=== PATIENT | male | born 1945 | race Caucasian/White ===

== ENCOUNTER 2023-01-01 09:48 | Observation (INO) | payer MEDICARE ==
--- NOTE | 2023-01-01 11:06 | ED ---
Extremity Problem HPI - General Chief complaint: Extremity Problem,Nontraumatic Stated complaint: L leg swelling Time Seen by Provider: 01/01/23 10:05 Source: patient, RN notes reviewed Mode of arrival: ambulatory - History of Present Illness Initial comments: This is a 77-year-old male who presents to the emergency department for left leg pain and swelling. Patient states that he typically has increased swelling in the left lower extremity. However, yesterday he noticed that the swelling was much more prominent than usual. He also has extreme sensitivity to this area. 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 States that this was 4 years ago. He cannot recall if his symptoms feel the same. He is taking Eliquis daily. Denies any chest pain or shortness of breath. Pain is worse with palpation and movement. It is not significant when sitting still. Denies any known injuries. Believes that he is on a water pill. Denies any fevers, chills, sore throat, cough, dyspnea, chest pain, palpitations, abdominal pain, nausea, vomiting, diarrhea, back pain, or headaches. MD Complaint: extremity pain, extremity swelling - Related Data Home Medications Medication Instructions Recorded Confirmed Apixaban [Eliquis] 5 mg PO BID 01/01/23 01/01/23 Aspirin EC [Ecotrin Low Dose] 81 mg PO DAILY 01/01/23 01/01/23 Ferrous Sulfate [Slow Fe] 142 mg PO DAILY 01/01/23 01/01/23 Fluticasone Nasal [place] [Flonase 1 spray EA NOSTRIL DAILY 01/01/23 01/01/23 Nasal [place]] Fluticasone Propion/Salmeterol 1 puff INHALATION RT-BID 01/01/23 01/01/23 [Advair 250-50 Diskus] Ipratropium/Albuter 20-100Mcg 1 puff INHALATION RT-QID 01/01/23 01/01/23 [Combivent Respimat 20-100Mcg Inhaler] Niacin 500 mg PO DAILY 01/01/23 01/01/23 [place]-3 Fatty Acids [[place]-3] 1,000 mg PO DAILY 01/01/23 01/01/23 Pantoprazole [Protonix] 40 mg PO DAILY 01/01/23 01/01/23 Potassium Gluconate 99 mg PO DAILY 01/01/23 01/01/23 Sildenafil Citrate 100 mg PO DAILY PRN 01/01/23 01/01/23 Thyroid,Pork [[place] Thyroid] 120 mg PO DAILY 01/01/23 01/01/23 Triamterene/Hydrochlorothiazid 1 tab PO DAILY 01/01/23 01/01/23 [Triamterene-Hctz 75-50 mg Tab] Zinc Gluconate [Zinc] 50 mg PO DAILY 01/01/23 01/01/23 oxyBUTYnin chloride [oxyBUTYnin 5 mg PO BID 01/01/23 01/01/23 chloride ER] Allergies Allergy/AdvReac Type Severity Reaction Status Date / Time No Known Allergies Allergy Verified 01/01/23 16:05 Review of Systems ROS Statement: Those systems with pertinent positive or pertinent negative responses have been documented in the HPI. ROS Other: All systems not noted in ROS Statement are negative. Past Medical History Past Medical History: Diabetes Mellitus, Hypertension History of Any Multi-Drug Resistant Organisms: None Reported Past Surgical History: Tonsillectomy Past Psychological History: No Psychological Hx Reported Smoking Status: Former smoker Past Alcohol Use History: None Reported Past Drug Use History: None Reported General Exam Limitations: no limitations General appearance: alert, in no apparent distress Head exam: Present: atraumatic, normocephalic, normal inspection Respiratory exam: Present: normal lung sounds bilaterally. Absent: respiratory distress, wheezes, rales, rhonchi, stridor Cardiovascular Exam: Present: regular rate, normal rhythm, normal heart sounds. Absent: systolic murmur, diastolic murmur, rubs, gallop, clicks Extremities exam: Present: other (3+ pitting edema to the left lower extremity. Calf tenderness. Minor erythema. 2+ DP and PT pulses.) Neurological exam: Present: alert, oriented X3, CN II-XII intact Psychiatric exam: Present: normal affect, normal mood Course Vital Signs 01/01/23 01/01/23 01/01/23 09:58 15:04 15:47 Temperature 98.1 F 98.7 F 99.4 F Pulse Rate 65 60 Respiratory 18 18 Rate Blood Pressure 146/68 141/60 O2 Sat by Pulse 98 96 Oximetry Medical Decision Making - Medical Decision Making This is a 77-year-old male who presents to the emergency department for left leg swelling. Was pt. sent in by a medical professional or institution? @ -No Did you speak to anyone other than the patient for history? @ -No Did you review nursing and triage notes? @ -Yes, and I agree, it is accurate with regards to the patient's symptoms. Were old charts reviewed? @ -No Differential Diagnosis? @ -Differential Leg Swelling: Cellullitis, Gout, DVT, PVD, arterial insufficiency, congestive heart failure, compartment syndrome, venous stasis changes, thrombophlebitis, contact dermatitis, necrotizing fasciitis, septic arthritis, this is not meant to be an all-inclusive list. EKG interpreted by me (3pts min.)? @ -EKG interpreted by me demonstrating the following: X-rays interpreted by me (1pt min.)? @ -Not obtained CT interpreted by me (1pt min.)? @ -CT angiogram of the chest obtained. My interpretation identifies distal subsegmental pulmonary emboli. U/S interpreted by me (1pt. min.)? @ -Not interpreted by me. What testing was considered but not performed? (CT, X-rays, U/S, labs)? Why? @ -None What meds were considered but not given? Why? @ -None Did you discuss the management of the patient with other professionals? @ -Yes, Shanon Levi with [facility], who accepts the patient for admission. Did you reconcile home meds? @ -Yes Was smoking cessation discussed for >3mins.? @ -No Was critical care preformed (if so, how long)? @ -No Were there social determinants of health that impacted care today? How? (Homelessness, low income, unemployed, alcoholism, drug addiction, transportation, low edu. Level, literacy, decrease access to med. care, longterm, rehab)? @ -No Was there de-escalation of care discussed even if they declined? (Discuss DNR or withdrawal of care, Hospice)? @ -No What co-morbidities impacted this encounter? (DM, HTN, Smoking, COPD, CAD, Cancer, CVA, Hep., AIDS, mental health diagnosis, sleep apnea, morbid obesity)? @ -DM, HTN Was patient admitted / discharged? @ -Admitted. Duplex ultrasound of the left lower extremity obtained revealing a DVT in the left lower extremity noted in the femoral and popliteal vein. It was suggested that this may be nonocclusive. While the patient does not have any chest pain or shortness of breath, he does have a history of a saddle embolus from a prior DVT. CTA of the chest was subsequently obtained. This identified scattered tiny pulmonary emboli in the distal subsegmental branches. Patient is on Eliquis 5 mg twice daily, which he states that he has been compliant with. Patient is very uncomfortable with regards to the leg pain. Patient admitted to medicine for further management and started on high intensity heparin protocol. Vascular listed as consult. Undiagnosed new problem with uncertain prognosis? @ -None Drug Therapy requiring intensive monitoring for toxicity (Heparin, Nitro, Insulin, Cardizem)? @ -None Were any procedures done? @ -None Diagnosis/symptom? @ -Left LE DVT, PE Acute, or Chronic, or Acute on Chronic? @ -Acute Uncomplicated (without systemic symptoms) or Complicated (systemic symptoms)? @ -Complicated Side effects of treatment? @ -None Exacerbation, Progression, or Severe Exacerbation] @ -Not applicable Poses a threat to life or bodily function? @ -Yes This case was discussed in detail with the attending ED physician, Dr. Asif. Presentation, findings, and treatment plan discussed in detail as well. - Lab Data Result diagrams: 01/01/23 10:44 01/01/23 12:35 Lab Results 01/01/23 01/01/23 01/01/23 Range/Units 10:44 12:35 12:35 WBC 5.6 (3.8-10.6) k/uL RBC 5.33 (4.30-5.90) m/uL Hgb 13.3 (13.0-17.5) gm/dL Hct 43.3 (39.0-53.0) % MCV 81.3 (80.0-100.0) fL MCH 24.9 L (25.0-35.0) pg MCHC 30.6 L (31.0-37.0) g/dL RDW 17.4 H (11.5-15.5) % Plt Count 283 (150-450) k/uL MPV 7.9 Neutrophils % 67 % Lymphocytes % 21 % Monocytes % 6 % Eosinophils % 4 % Basophils % 0 % Neutrophils # 3.8 (1.3-7.7) k/uL Lymphocytes # 1.2 (1.0-4.8) k/uL Monocytes # 0.3 (0-1.0) k/uL Eosinophils # 0.2 (0-0.7) k/uL Basophils # 0.0 (0-0.2) k/uL Hypochromasia Marked Anisocytosis Slight Microcytosis Slight Sodium 139 (137-145) mmol/L Potassium 3.6 (3.5-5.1) mmol/L Chloride 105 (98-107) mmol/L Carbon Dioxide 29 (22-30) mmol/L Anion Gap 5 mmol/L BUN 14 (9-20) mg/dL Creatinine 1.09 (0.66-1.25) mg/dL Est GFR (CKD-EPI)AfAm 76 (>60 ml/min/1.73 sqM) Est GFR (CKD-EPI)NonAf 66 (>60 ml/min/1.73 sqM) Glucose 88 (74-99) mg/dL Plasma Lactic Acid Doni 1.0 (0.7-2.0) mmol/L Calcium 8.4 (8.4-10.2) mg/dL Total Bilirubin 0.7 (0.2-1.3) mg/dL AST 18 (17-59) U/L ALT 13 (4-49) U/L Alkaline Phosphatase 58 (38-126) U/L Total Protein 6.5 (6.3-8.2) g/dL Albumin 3.3 L (3.5-5.0) g/dL - Radiology Data Radiology results: report reviewed, image reviewed Disposition Clinical Impression: Left leg DVT, Pulmonary embolus Disposition: ADMITTED IP TO THIS [facility] Referrals: Nonstaff,Physician [Primary Care Provider] - 1-2 days
[2023-01-01 11:12] LABS: Anisocytosis Slight; Basophils % (A) 0 %; Eosinophils # (A) 0.2 k/uL (0-0.7); Eosinophils % (A) 4 %; HCT 43.3 % (39.0-53.0); HGB 13.3 gm/dL (13.0-17.5); Hypochromasia Marked; Lymphocytes # (A) 1.2 k/uL (1.0-4.8); Lymphocytes % (A) 21 %; MCH 24.9 pg (25.0-35.0); MCHC 30.6 g/dL (31.0-37.0); MCV 81.3 fL (80.0-100.0); Mean Platelet Volume 7.9; Microcytosis Slight; Monocytes # (A) 0.3 k/uL (0-1.0); Monocytes % (A) 6 %; Neutrophils # (A) 3.8 k/uL (1.3-7.7); Neutrophils % (A) 67 %; Platelet Count 283 k/uL (150-450); RBC 5.33 m/uL (4.30-5.90); RDW 17.4 % (11.5-15.5); WBC 5.6 k/uL (3.8-10.6)
--- NOTE | 2023-01-01 12:04 | US ---
EXAMINATION TYPE: US venous doppler duplex LE LT DATE OF EXAM: 01/01/2023 10:26 AM COMPARISON: NONE CLINICAL INDICATION: Male, 77 years old with history of Left leg swelling; SIDE PERFORMED: Left TECHNIQUE: The lower extremity deep venous system is examined utilizing real time linear array sonog kamar with graded compression, doppler sonography and color-flow sonography. VESSELS IMAGED: Common Femoral Vein Deep Femoral Vein Greater Saphenous Vein * Femoral Vein Popliteal Vein Small Saphenous Vein * Proximal Calf Veins (* superficial vessels) Left Leg: Appears positive for DVT, partial flow and compression femoral vein and popliteal vein IMPRESSION: 1. Deep venous thrombosis within the Left lower extremity. This may be nonoccluding
[2023-01-01 12:59] LABS: ALT 13 U/L (4-49); AST 18 U/L (17-59); African American GFR (CKD) 76 (>60 ml/min/1.73 sqM); Albumin 3.3 g/dL (3.5-5.0); Alkaline Phosphatase 58 U/L (38-126); Anion Gap 5 mmol/L; Blood Urea Nitrogen 14 mg/dL (9-20); Calcium 8.4 mg/dL (8.4-10.2); Carbon Dioxide 29 mmol/L (22-30); Chloride 105 mmol/L (98-107); Glucose 88 mg/dL (74-99); Non-African American GFR(CKD) 66 (>60 ml/min/1.73 sqM); Potassium 3.6 mmol/L (3.5-5.1); Sodium 139 mmol/L (137-145); Total Bilirubin 0.7 mg/dL (0.2-1.3); Total Protein 6.5 g/dL (6.3-8.2)
--- NOTE | 2023-01-01 15:12 | CT ---
EXAMINATION TYPE: CT chest angio for PE DATE OF EXAM: 01/01/2023 COMPARISON: None HISTORY: Left leg DVT, history of PE. CT DLP: 653.7 mGycm Automated exposure control for dose reduction was used. CONTRAST: CT Chest for pulmonary embolism performed with with IV Contrast, patient injected with 71ml mL of Iso monica 370. FINDINGS: The lungs are clear of airspace consolidation. The pulmonary vasculature appears mildly prominent is a suggestion of slight groundglass density which could reflect mild pulmonary edema. The heart size i s prominent. The main pulmonary artery and right and left pulmonary arteries are well opacified and there are no f illing defects. Due to motion artifact the subsegmental branches and lower lobes are difficult to ass ess for filling defects but but there is a suggestion of a couple of tiny filling defects which may indicate tiny distal pulmonary emboli.. There is no pleural effusion or pneumothorax. There is no mediastinal, hilar or axillary adenopathy. There are a few sub-6 mm pulmonary nodules but no suspicious lung masses or nodules are seen. The osseous structures are intact. IMPRESSION: 1. Mildly limited study due to artifact. A few scattered tiny pulmonary emboli in distal subsegmental branches are suspected. No large pulmonary emboli within the main pulmonary artery or right and left pulmonary artery or proximal segmental branches. 2. Suggestive of mild CHF and clinical correlation is recommended.
[2023-01-01] MEDS ORDERED: HEPARIN SODIUM 1,000 UN/ML (10ML VL) IV ONE (16:31)
[2023-01-01] MEDS ORDERED: HEPARIN SODIUM 1,000 UN/ML (10ML VL) IV PRN (16:31)
[2023-01-01] MEDS ORDERED: MORPHINE SULFATE 4 MG/ML SYRINGE IV PRN (16:32)
[2023-01-01] MEDS ORDERED: NALOXONE 0.4 MG/ML 1 ML VIAL IV PRN (16:32)
[2023-01-01] MEDS ORDERED: ONDANSETRON 4 MG/2 ML VIAL IVP PRN (16:32)
[2023-01-01] MEDS ORDERED: ACETAMINOPHEN TAB 325 MG TAB PO PRN (16:32)
[2023-01-01] MEDS ORDERED: HYDROcodone/APAP 5-325MG 1 EACH TAB PO PRN (16:32)
[2023-01-01] MEDS: HEPARIN SOD,PORK IN 0.45% NACL 25,000 UNIT in 0.45% NACL 1 250ML.BAG IV SCH (17:03)
[2023-01-01 19:40] LABS: INR 1.2 (<1.2); Prothrombin Time 12.1 sec (9.0-12.0)
[2023-01-01] MEDS: SYMBICORT 80-4.5 MCG INHALER INHALATION SCH (21:08)
[2023-01-01] MEDS: IPRATROPIUM-ALBUTEROL 3 ML NEB INHALATION SCH (21:08)
[2023-01-01] MEDS: OXYBUTYNIN XL 5 MG TAB.ER.24 PO SCH (22:43)
[2023-01-02] MEDS: HEPARIN SOD,PORK IN 0.45% NACL 25,000 UNIT in 0.45% NACL 1 250ML.BAG IV SCH (07:33)
[2023-01-02] MEDS: PANTOPRAZOLE 40 MG TABLET PO SCH (07:36)
[2023-01-02] MEDS: SYMBICORT 80-4.5 MCG INHALER INHALATION SCH ×2 (08:21→20:15)
[2023-01-02] MEDS: IPRATROPIUM-ALBUTEROL 3 ML NEB INHALATION SCH ×5 (08:21→20:15)
[2023-01-02 08:57] LABS: Basophils # (A) 0.04 X 10*3/uL (0.00-0.10); Basophils % (A) 0.7 %; Eosinophils # (A) 0.24 X 10*3/uL (0.04-0.35); Eosinophils % (A) 4.3 %; HGB 11.6 d/dL (12.0-15.0); Lymphocytes # (A) 1.33 X 10*3/uL (0.90-5.00); Lymphocytes % (A) 23.8 %; MCH 23.4 pg (27.0-32.0); MCV 80.6 FL (80.0-97.0); Mean Platelet Volume 10.4 FL (9.5-12.2); Monocytes # (A) 0.35 X 10*3/uL (0.20-1.00); Monocytes % (A) 6.3 %; NRBC Per 100 WBC 0 X 10*3/uL (0.00-0.01); Neutrophils # (A) 3.61 X 10*3/uL (1.80-7.70); Neutrophils % (A) 64.7 %; Platelet Count 270 X 10*3/uL (140-440); RBC 4.96 X 10*6/uL (4.40-5.60); RDW 18.5 % (11.5-14.5); WBC 5.58 X 10*3/uL (4.50-10.00)
[2023-01-02] MEDS ORDERED: NON FORMULARY DRUG (Omega-3 Fatty Acids [Omega-3] 1,000 MG Capsule) PO SCH (09:00)
[2023-01-02] MEDS: POTASSIUM CHLORIDE ER 10 MEQ TAB.ER.PRT PO SCH (09:56)
[2023-01-02] MEDS: TRIAMTERENE-HCTZ 75-50MG 1 EACH TAB PO SCH (09:56)
[2023-01-02] MEDS: ZINC SULFATE 220 MG CAP PO SCH (09:56)
[2023-01-02] MEDS: OXYBUTYNIN XL 5 MG TAB.ER.24 PO SCH ×2 (09:56→21:07)
[2023-01-02] MEDS: FLUTICASONE 50MCG/SPRAY NASAL 16GM EA NOSTRIL SCH (09:56)
[2023-01-02] MEDS: FERROUS SULFATE 325 MG TAB PO SCH (09:56)
[2023-01-02] MEDS: NIACIN TR 500 MG CAPLET PO SCH (09:56)
[2023-01-02] MEDS: THYROID, PORK 30 MG TAB PO SCH (09:56)
--- NOTE | 2023-01-02 10:30 | P.GSCN ---
History of Present Illness Consult date: 01/02/23 Reason for Consult: Pulmonary embolism without heart strain Requesting physician: Davina Cheng History of present illness: This is a pleasant 77-year-old male who presented to the emergency department with concerns for left lower extremity swelling. Patient has a past medical history including left lower extremity DVT and bilateral pulmonary embolism diagnosed several years ago. Patient was currently on Eliquis 5mg BID. He states that he has been taking his medication. Also past medical history including diabetes mellitus and hypertension. He currently denies any significant shortness of breath but states left lower extremity swelling was concerning and he is very sensitive in that area but has been. He was started on heparin drip. Oxygen saturation 94-95%. Review of Systems A 14 point review systems was completed all pertinent positives and negatives as stated in the HPI. Past Medical History Past Medical History: Diabetes Mellitus, Hypertension History of Any Multi-Drug Resistant Organisms: None Reported Past Surgical History: Tonsillectomy Past Psychological History: No Psychological Hx Reported Smoking Status: Former smoker Past Alcohol Use History: None Reported Past Drug Use History: None Reported Medications and Allergies Home Medications Medication Instructions Recorded Confirmed Type Apixaban [Eliquis] 5 mg PO BID 01/01/23 01/01/23 History Aspirin EC [Ecotrin Low Dose] 81 mg PO DAILY 01/01/23 01/01/23 History Ferrous Sulfate [Slow Fe] 142 mg PO DAILY 01/01/23 01/01/23 History Fluticasone Nasal [place] [Flonase 1 spray EA NOSTRIL DAILY 01/01/23 01/01/23 History Nasal [place]] Fluticasone Propion/Salmeterol 1 puff INHALATION RT-BID 01/01/23 01/01/23 History [Advair 250-50 Diskus] Ipratropium/Albuter 20-100Mcg 1 puff INHALATION RT-QID 01/01/23 01/01/23 History [Combivent Respimat 20-100Mcg Inhaler] Niacin 500 mg PO DAILY 01/01/23 01/01/23 History [place]-3 Fatty Acids [[place]-3] 1,000 mg PO DAILY 01/01/23 01/01/23 History Pantoprazole [Protonix] 40 mg PO DAILY 01/01/23 01/01/23 History Potassium Gluconate 99 mg PO DAILY 01/01/23 01/01/23 History Sildenafil Citrate 100 mg PO DAILY PRN 01/01/23 01/01/23 History Thyroid,Pork [[place] Thyroid] 120 mg PO DAILY 01/01/23 01/01/23 History Triamterene/Hydrochlorothiazid 1 tab PO DAILY 01/01/23 01/01/23 History [Triamterene-Hctz 75-50 mg Tab] Zinc Gluconate [Zinc] 50 mg PO DAILY 01/01/23 01/01/23 History oxyBUTYnin chloride [oxyBUTYnin 5 mg PO BID 01/01/23 01/01/23 History chloride ER] Allergies Allergy/AdvReac Type Severity Reaction Status Date / Time No Known Allergies Allergy Verified 01/01/23 16:05 Surgical - Exam Vital Signs Temp Pulse Resp BP Pulse Ox 98.1 F 65 18 146/68 98 01/01/23 09:58 01/01/23 09:58 01/01/23 09:58 01/01/23 09:58 01/01/23 09:58 General appearance: The patient is alert, oriented, appears in no acute distress. HET: Head is normocephalic and atraumatic. Neck: Supple. Heart: Regular. Lungs: Equal expansion, normal respiratory effort. Abdomen: Soft, nontender, nondistended. Extremities: Normal skin color and turgor. Left lower extremity swelling. Neurological: No focal deficits. Results - Labs 01/02/23 04:03 01/01/23 12:35 Abnormal Lab Results - Last 24 Hours (Table) 01/01/23 01/01/23 01/01/23 Range/Units 10:44 12:35 18:47 MCH 24.9 L (25.0-35.0) pg MCHC 30.6 L (31.0-37.0) g/dL RDW 17.4 H (11.5-15.5) % PT 12.1 H (9.0-12.0) sec INR 1.2 H (<1.2) APTT (22.0-30.0) sec Albumin 3.3 L (3.5-5.0) g/dL 01/01/23 01/01/23 01/02/23 Range/Units 20:30 22:20 04:03 MCH (25.0-35.0) pg MCHC (31.0-37.0) g/dL RDW (11.5-15.5) % PT (9.0-12.0) sec INR (<1.2) APTT 156.7 H* 100.9 H* 66.5 H (22.0-30.0) sec Albumin (3.5-5.0) g/dL Diabetes panel 01/01/23 Range/Units 12:35 Sodium 139 (137-145) mmol/L Potassium 3.6 (3.5-5.1) mmol/L Chloride 105 (98-107) mmol/L Carbon Dioxide 29 (22-30) mmol/L BUN 14 (9-20) mg/dL Creatinine 1.09 (0.66-1.25) mg/dL Glucose 88 (74-99) mg/dL Calcium 8.4 (8.4-10.2) mg/dL AST 18 (17-59) U/L ALT 13 (4-49) U/L Alkaline Phosphatase 58 (38-126) U/L Total Protein 6.5 (6.3-8.2) g/dL Albumin 3.3 L (3.5-5.0) g/dL Calcium panel 01/01/23 Range/Units 12:35 Calcium 8.4 (8.4-10.2) mg/dL Albumin 3.3 L (3.5-5.0) g/dL Pituitary panel 01/01/23 Range/Units 12:35 Sodium 139 (137-145) mmol/L Potassium 3.6 (3.5-5.1) mmol/L Chloride 105 (98-107) mmol/L Carbon Dioxide 29 (22-30) mmol/L BUN 14 (9-20) mg/dL Creatinine 1.09 (0.66-1.25) mg/dL Glucose 88 (74-99) mg/dL Calcium 8.4 (8.4-10.2) mg/dL Adrenal panel 01/01/23 Range/Units 12:35 Sodium 139 (137-145) mmol/L Potassium 3.6 (3.5-5.1) mmol/L Chloride 105 (98-107) mmol/L Carbon Dioxide 29 (22-30) mmol/L BUN 14 (9-20) mg/dL Creatinine 1.09 (0.66-1.25) mg/dL Glucose 88 (74-99) mg/dL Calcium 8.4 (8.4-10.2) mg/dL Total Bilirubin 0.7 (0.2-1.3) mg/dL AST 18 (17-59) U/L ALT 13 (4-49) U/L Alkaline Phosphatase 58 (38-126) U/L Total Protein 6.5 (6.3-8.2) g/dL Albumin 3.3 L (3.5-5.0) g/dL - Imaging Comments: Left lower extremity weakness duplex reviewed by Dr. Bhatt. Appears to be chronic. As well as CTA chest reviewed by Dr. Bhatt, likely CHRONIC. Assessment and Plan Assessment: 1. Left lower extremity DVT, chronic 2. Bilateral pulmonary emboli, likely chronic 3. Possible CHF, may account for increased left lower extremity swelling Plan: Left lower extremity venous duplex independently reviewed by Dr. Munoz as well as chest CT angiogram. Likely all CHRONIC. Left lower extremity is increased swelling may be secondary to possible CHF as noted on CT angiogram. Discussed with primary medical team would resume Eliquis as DVT and PEs appear chronic and this is not likely failure of medication however if they feel they want input from hematology we will defer to them for consultation. Thank you for this consultation, there is no indication for any vascular surgical intervention. We will sign off at this time. The impression and plan of care has been dictated as directed. Dr. Bhatt I performed a history and examination of this patient, discussed the same with the dictator. I agree with the dictator's note ,documented as a scribe. Any additional findings or plans will be noted.
--- NOTE | 2023-01-02 14:40 | P.HPIM ---
History of Present Illness H&P Date: 01/02/23 History of present illness; patient is a 77-year-old gentleman with past medical significant for DVT, PE who presented to the ER because of left leg pain and swelling. Patient started noticing increased swelling of left lower extremity, was also associated pain in that area. Patient has previous history of DVT in right lower extremity leading to PE for which he takes Eliquis. Patient denies any orthopnea or PND. There was no complain of any fever or chills. Denies any chest pain or shortness of breath. Because of his left lower extremity swelling, patient came to the ER Initial lab work in the ER showed WBC 5.6, hemoglobin 13.3, platelet count 283, sodium 139, potassium 3.6, BUN 14, creatinine 1.09 Chest CTA done showed few scattered tiny pulmonary emboliin distal subsegmental branches. No large pulmonary emboli suspected Ultrasound of lower extremities showed deep vein thrombosis in the left lower extremity, nonoccluding Patient was admitted to medicine service REVIEW OF SYSTEMS: CONSTITUTIONAL: No fever, no malaise, no fatigue. HEENT: No recent visual problems or hearing problems. Denied any sore throat. CARDIOVASCULAR: No chest pain, orthopnea, PND, no palpitations, no syncope. PULMONARY: No shortness of breath, no cough, no hemoptysis. GASTROINTESTINAL: No diarrhea, no nausea, no vomiting, no abdominal pain. NEUROLOGICAL: No headaches, no weakness, no numbness. HEMATOLOGICAL: Denies any bleeding or petechiae. GENITOURINARY: Denies any burning micturition, frequency, or urgency. MUSCULOSKELETAL/RHEUMATOLOGICAL: Denies any joint pain, swelling, or any muscle pain. ENDOCRINE: Denies any polyuria or polydipsia. The rest of the 14-point review of systems is negative. PHYSICAL EXAMINATION: GENERAL: The patient is alert and oriented x3, not in any acute distress. Well developed, well nourished. HEENT: Pupils are round and equally reacting to light. EOMI. No scleral icterus. No conjunctival pallor. Normocephalic, atraumatic. No pharyngeal erythema. No thyromegaly. CARDIOVASCULAR: S1 and S2 present. No murmurs, rubs, or gallops. PULMONARY: Chest is clear to auscultation, no wheezing or crackles. ABDOMEN: Soft, nontender, nondistended, normoactive bowel sounds. No palpable organomegaly. MUSCULOSKELETAL: No joint swelling or deformity. EXTREMITIES: No cyanosis, clubbing, or pedal edema. NEUROLOGICAL: Gross neurological examination did not reveal any focal deficits. SKIN: No rashes. Assessment and plan Acute PE Acute left lower extremity DVT Acute CHF Hypertension Hypothyroidism Monitor vital signs Monitor CBC Monitor CMP Continue pharmacy dose heparin Consult hematology oncology regarding evaluation for oral anticoagulation since patient already on Eliquis, whether this is Eliquis failure Vascular surgery on board Past Medical History Past Medical History: Diabetes Mellitus, Hypertension History of Any Multi-Drug Resistant Organisms: None Reported Past Surgical History: Tonsillectomy Past Psychological History: No Psychological Hx Reported Smoking Status: Former smoker Past Alcohol Use History: None Reported Past Drug Use History: None Reported Medications and Allergies Home Medications Medication Instructions Recorded Confirmed Type Apixaban [Eliquis] 5 mg PO BID 01/01/23 01/01/23 History Aspirin EC [Ecotrin Low Dose] 81 mg PO DAILY 01/01/23 01/01/23 History Ferrous Sulfate [Slow Fe] 142 mg PO DAILY 01/01/23 01/01/23 History Fluticasone Nasal [place] [Flonase 1 spray EA NOSTRIL DAILY 01/01/23 01/01/23 History Nasal [place]] Fluticasone Propion/Salmeterol 1 puff INHALATION RT-BID 01/01/23 01/01/23 History [Advair 250-50 Diskus] Ipratropium/Albuter 20-100Mcg 1 puff INHALATION RT-QID 01/01/23 01/01/23 History [Combivent Respimat 20-100Mcg Inhaler] Niacin 500 mg PO DAILY 01/01/23 01/01/23 History [place]-3 Fatty Acids [[place]-3] 1,000 mg PO DAILY 01/01/23 01/01/23 History Pantoprazole [Protonix] 40 mg PO DAILY 01/01/23 01/01/23 History Potassium Gluconate 99 mg PO DAILY 01/01/23 01/01/23 History Sildenafil Citrate 100 mg PO DAILY PRN 01/01/23 01/01/23 History Thyroid,Pork [[place] Thyroid] 120 mg PO DAILY 01/01/23 01/01/23 History Triamterene/Hydrochlorothiazid 1 tab PO DAILY 01/01/23 01/01/23 History [Triamterene-Hctz 75-50 mg Tab] Zinc Gluconate [Zinc] 50 mg PO DAILY 01/01/23 01/01/23 History oxyBUTYnin chloride [oxyBUTYnin 5 mg PO BID 01/01/23 01/01/23 History chloride ER] Allergies Allergy/AdvReac Type Severity Reaction Status Date / Time No Known Allergies Allergy Verified 01/01/23 16:05 Physical Exam Vitals: Vital Signs Temp Pulse Pulse Resp BP BP Pulse Ox 01/02/23 08:37 70 01/02/23 08:24 66 01/02/23 07:22 98.4 F 62 18 150/78 95 01/02/23 05:39 01/02/23 01:31 97.8 F 64 19 159/75 94 L 01/02/23 00:27 01/01/23 23:09 01/01/23 22:15 01/01/23 21:17 55 L 01/01/23 21:08 52 L 01/01/23 21:02 98.0 F 54 L 16 168/79 96 01/01/23 20:00 54 L 17 145/68 96 01/01/23 19:00 52 L 15 150/77 96 01/01/23 18:38 98.2 F 50 L 18 150/77 94 L 01/01/23 17:12 98.6 F 54 L 18 143/64 01/01/23 15:47 99.4 F 01/01/23 15:04 98.7 F 60 18 141/60 96 FiO2 01/02/23 08:37 01/02/23 08:24 01/02/23 07:22 01/02/23 05:39 21 01/02/23 01:31 01/02/23 00:27 21 01/01/23 23:09 21 01/01/23 22:15 21 01/01/23 21:17 01/01/23 21:08 01/01/23 21:02 01/01/23 20:00 01/01/23 19:00 01/01/23 18:38 01/01/23 17:12 01/01/23 15:47 01/01/23 15:04 Intake and Output 01/01/23 01/02/23 01/02/23 22:59 06:59 14:59 Intake Total 113.35 136.65 Balance 113.35 136.65 Intake: Intake, IV Titration 113.35 136.65 Amount Heparin Sod,Pork in 0.45% 113.35 136.65 NaCl 25,000 unit In 0.45 % NaCl 1 250ml.bag @ 18 UNITS/KG/HR 20.003 mls/hr IV .[id number] [facility] Rx#: [id number] Other: Voiding Method Toilet # Voids 2 Weight 111.13 kg Results CBC & Chem 7: 01/02/23 04:03 01/01/23 12:35 Labs: Abnormal Lab Results - Last 24 Hours (Table) 01/01/23 01/01/23 01/01/23 Range/Units 10:44 12:35 18:47 Hgb (12.0-15.0) d/dL MCH 24.9 L (25.0-35.0) pg MCHC 30.6 L (31.0-37.0) g/dL RDW 17.4 H (11.5-15.5) % PT 12.1 H (9.0-12.0) sec INR 1.2 H (<1.2) APTT (22.0-30.0) sec Albumin 3.3 L (3.5-5.0) g/dL 01/01/23 01/01/23 01/02/23 Range/Units 20:30 22:20 04:03 Hgb 11.6 L (12.0-15.0) d/dL MCH 23.4 L (25.0-35.0) pg MCHC 29.0 L (31.0-37.0) g/dL RDW 18.5 H (11.5-15.5) % PT (9.0-12.0) sec INR (<1.2) APTT 156.7 H* 100.9 H* (22.0-30.0) sec Albumin (3.5-5.0) g/dL 01/02/23 Range/Units 04:03 Hgb (12.0-15.0) d/dL MCH (25.0-35.0) pg MCHC (31.0-37.0) g/dL RDW (11.5-15.5) % PT (9.0-12.0) sec INR (<1.2) APTT 66.5 H (22.0-30.0) sec Albumin (3.5-5.0) g/dL Thrombosis Risk Factor Assmnt - Choose All That Apply Any of the Below Risk Factors Present?: Yes Each Factor Represents 1 point: Swollen legs (current) Other Risk Factors: Yes Each Risk Factor Represents 3 Points: Age 75 years or older, History of DVT/PE Thrombosis Risk Factor Assessment Total Risk Factor Score: 7 Thrombosis Risk Factor Assessment Level: High Risk
--- NOTE | 2023-01-03 00:29 | P.CONS ---
History of Present Illness - Reason for Consult Consult date: 01/02/23 DVT,PE - History of Present Illness the patient is a 77-year-old white male, with multiple medical problems. The patient came in because of swelling of the left lower extremity, associated with increased sensitivity over the past 2-3 days. He has a history of left lower extremity DVT, and a PE which was a saddle embolus. The patient is quite hard of hearing and most of the history was provided by a female family member who was at the bedside. She states that this event happened about 4-5 years ago, and the patient was seen at the [facility] ER and then transferred to a tertiary center. He has been on anticoagulation with Eliquis since. The patient stated that he has missed some doses intermittently, but has been mostly compliant and has not had any prolonged period of missing medication. He denies any recent hospitalization, surgery or trauma. No history of any hormonal supplementation, or recent inflammation. He did have coronavirus infection, but that was about 8 months ago. They denied any family history is suggestive of hypercoagulable state. He could not recall any provoking factors for his initial thrombus. The patient had Dopplers done, which showed nonoccluding thrombus involving the left femoral vein, with CT angiogram revealing possibly some small peripheral subsegmental thrombi the patient was admitted and started on IV heparin, for concerns regarding possible eliquis failure. He was seen by after surgery, who reviewed his imaging personally and felt that the findings represented chronic thrombosis The patient's previous records were personally reviewed in the [facility] EMR. This was in 06/19. The DVT was involving the common femoral, mid and distal femoral vein and extending into the popliteal vein, and was completely occluding. The PE was a large, saddle embolus with extension into the segmental and subsegmental branches. Repeat Dopplers in 05/23 had shown chronic-appearing clot in the distal femoral/popliteal veins, with trickle flow. Therefore it does appear that, on review of the imaging characteristics previously, and the current findings do represent residual chronic thrombi The patient and his family denied any prior evaluation with hematology Review of Systems Constitutional: Denies chills, Denies fever Eyes: denies blurred vision, denies pain Ears: bilateral: decreased hearing, deny: ear discharge, earache, tinnitus Ears, nose, mouth and throat: Denies headache, Denies sore throat Cardiovascular: Reports decreased exercise tolerance Respiratory: Denies cough Gastrointestinal: Denies abdominal pain, Denies diarrhea, Denies nausea, Denies vomiting Genitourinary: Reports as per HPI Musculoskeletal: Reports as per HPI Integumentary: Denies pruritus, Denies rash Neurological: Denies numbness, Denies weakness Psychiatric: Denies anxiety, Denies depression Endocrine: Reports high blood sugars Hematologic/Lymphatic: Reports as per HPI, Reports thrombophilia Past Medical History Past Medical History: Diabetes Mellitus, Hypertension History of Any Multi-Drug Resistant Organisms: None Reported Past Surgical History: Tonsillectomy Past Psychological History: No Psychological Hx Reported Smoking Status: Former smoker Past Alcohol Use History: None Reported Past Drug Use History: None Reported Medications and Allergies Home Medications Medication Instructions Recorded Confirmed Type Apixaban [Eliquis] 5 mg PO BID 01/01/23 01/01/23 History Aspirin EC [Ecotrin Low Dose] 81 mg PO DAILY 01/01/23 01/01/23 History Ferrous Sulfate [Slow Fe] 142 mg PO DAILY 01/01/23 01/01/23 History Fluticasone Nasal [place] [Flonase 1 spray EA NOSTRIL DAILY 01/01/23 01/01/23 History Nasal [place]] Fluticasone Propion/Salmeterol 1 puff INHALATION RT-BID 01/01/23 01/01/23 History [Advair 250-50 Diskus] Ipratropium/Albuter 20-100Mcg 1 puff INHALATION RT-QID 01/01/23 01/01/23 History [Combivent Respimat 20-100Mcg Inhaler] Niacin 500 mg PO DAILY 01/01/23 01/01/23 History [place]-3 Fatty Acids [[place]-3] 1,000 mg PO DAILY 01/01/23 01/01/23 History Pantoprazole [Protonix] 40 mg PO DAILY 01/01/23 01/01/23 History Potassium Gluconate 99 mg PO DAILY 01/01/23 01/01/23 History Sildenafil Citrate 100 mg PO DAILY PRN 01/01/23 01/01/23 History Thyroid,Pork [[place] Thyroid] 120 mg PO DAILY 01/01/23 01/01/23 History Triamterene/Hydrochlorothiazid 1 tab PO DAILY 01/01/23 01/01/23 History [Triamterene-Hctz 75-50 mg Tab] Zinc Gluconate [Zinc] 50 mg PO DAILY 01/01/23 01/01/23 History oxyBUTYnin chloride [oxyBUTYnin 5 mg PO BID 01/01/23 01/01/23 History chloride ER] Allergies Allergy/AdvReac Type Severity Reaction Status Date / Time No Known Allergies Allergy Verified 01/01/23 16:05 Physical Exam Vitals: Vital Signs Temp Pulse Pulse Resp BP BP Pulse Ox 01/02/23 13:56 98.0 F 69 20 148/63 91 L 01/02/23 12:00 72 01/02/23 11:49 68 01/02/23 08:37 70 01/02/23 08:24 66 01/02/23 07:22 98.4 F 62 18 150/78 95 01/02/23 05:39 01/02/23 01:31 97.8 F 64 19 159/75 94 L 01/02/23 00:27 01/01/23 23:09 01/01/23 22:15 01/01/23 21:17 55 L 01/01/23 21:08 52 L 01/01/23 21:02 98.0 F 54 L 16 168/79 96 01/01/23 20:00 54 L 17 145/68 96 01/01/23 19:00 52 L 15 150/77 96 01/01/23 18:38 98.2 F 50 L 18 150/77 94 L 01/01/23 17:12 98.6 F 54 L 18 143/64 01/01/23 15:47 99.4 F 01/01/23 15:04 98.7 F 60 18 141/60 96 FiO2 01/02/23 13:56 01/02/23 12:00 01/02/23 11:49 01/02/23 08:37 01/02/23 08:24 01/02/23 07:22 01/02/23 05:39 21 01/02/23 01:31 01/02/23 00:27 21 01/01/23 23:09 21 01/01/23 22:15 21 01/01/23 21:17 01/01/23 21:08 01/01/23 21:02 01/01/23 20:00 01/01/23 19:00 01/01/23 18:38 01/01/23 17:12 01/01/23 15:47 01/01/23 15:04 Intake and Output 01/01/23 01/02/23 01/02/23 22:59 06:59 14:59 Intake Total 113.35 136.65 Balance 113.35 136.65 Intake: Intake, IV Titration 113.35 136.65 Amount Heparin Sod,Pork in 0.45% 113.35 136.65 NaCl 25,000 unit In 0.45 % NaCl 1 250ml.bag @ 18 UNITS/KG/HR 20.003 mls/hr IV .[id number] [facility] Rx#: [id number] Other: Voiding Method Toilet # Voids 2 Weight 111.13 kg - Constitutional General appearance: no acute distress - EENT Eyes: EOMI, PERRLA ENT: hearing grossly normal, normal oropharynx - Neck Neck: no lymphadenopathy Thyroid: bilateral: normal size - Respiratory Respiratory: bilateral: CTA - Cardiovascular Rhythm: regular Heart sounds: normal: S1, S2 - Gastrointestinal General gastrointestinal: normal bowel sounds, soft - Integumentary Integumentary: normal - Neurologic Neurologic: CNII-XII intact, focal deficits (hard of hearing) - Musculoskeletal b/l LE edema , L sig > R Musculoskeletal: generalized weakness, strength equal bilaterally - Psychiatric Psychiatric: A&O x's 3, appropriate affect Results CBC & Chem 7: 01/02/23 04:03 01/01/23 12:35 Labs: Abnormal Lab Results - Last 24 Hours (Table) 01/01/23 01/01/23 01/01/23 Range/Units 18:47 20:30 22:20 Hgb (12.0-15.0) d/dL MCH (27.0-32.0) pg MCHC (32.0-37.0) d/dL RDW (11.5-14.5) % PT 12.1 H (9.0-12.0) sec INR 1.2 H (<1.2) APTT 156.7 H* 100.9 H* (22.0-30.0) sec 01/02/23 01/02/23 Range/Units 04:03 04:03 Hgb 11.6 L (12.0-15.0) d/dL MCH 23.4 L (27.0-32.0) pg MCHC 29.0 L (32.0-37.0) d/dL RDW 18.5 H (11.5-14.5) % PT (9.0-12.0) sec INR (<1.2) APTT 66.5 H (22.0-30.0) sec CT scan - chest: report reviewed Venous US: report reviewed Assessment and Plan (1) Left leg DVT Narrative/Plan: there was concern for recurrence, because of symptoms as described in the HPI. Recurrent acute DVT would mean failure of treatment. However, as noted in the HPI, the current findings when compared to prior imaging done at [facility] appeared to be compatible with residual chronic thrombosis. The same opinion was given by vascular surgery on their review of the clinical data including the imaging - The above was discussed in detail with internal medicine. From our standpoint the patient can therefore be switched back to Eliquis. There does not appear to be any failure of anticoagulation. - Given prior history of apparently an unprovoked event including major PE, lifelong anticoagulation is reasonable as long as there are no tolerance issues Current Visit: Yes Status: Acute Code(s): I82.402 - ACUTE EMBOLISM AND THOMBOS UNSP DEEP VEINS OF L LOW EXTREM SNOMED Code(s): 272582736 (2) Pulmonary embolus Narrative/Plan: again, review of prior imaging indicates that the current findings either reflect some small residual chronic thrombosis, versus artifact as the dye injection was potentially suboptimal. Plan as noted above Current Visit: Yes Status: Acute Code(s): I26.99 - OTHER PULMONARY EMBOLISM WITHOUT ACUTE COR PULMONALE SNOMED Code(s): 90491215
[2023-01-03] MEDS: HEPARIN SOD,PORK IN 0.45% NACL 25,000 UNIT in 0.45% NACL 1 250ML.BAG IV SCH ×2 (00:42→06:02)
[2023-01-03] MEDS: PANTOPRAZOLE 40 MG TABLET PO SCH (06:36)
[2023-01-03] MEDS: SYMBICORT 80-4.5 MCG INHALER INHALATION SCH (09:24)
[2023-01-03] MEDS: IPRATROPIUM-ALBUTEROL 3 ML NEB INHALATION SCH ×3 (09:24→16:17)
[2023-01-03] MEDS: OXYBUTYNIN XL 5 MG TAB.ER.24 PO SCH (09:41)
[2023-01-03] MEDS: FLUTICASONE 50MCG/SPRAY NASAL 16GM EA NOSTRIL SCH (09:41)
[2023-01-03] MEDS: POTASSIUM CHLORIDE ER 10 MEQ TAB.ER.PRT PO SCH (09:41)
[2023-01-03] MEDS: FERROUS SULFATE 325 MG TAB PO SCH (09:41)
[2023-01-03] MEDS: ZINC SULFATE 220 MG CAP PO SCH (09:41)
[2023-01-03] MEDS: TRIAMTERENE-HCTZ 75-50MG 1 EACH TAB PO SCH (09:42)
[2023-01-03] MEDS: THYROID, PORK 30 MG TAB PO SCH (09:42)
[2023-01-03] MEDS: NIACIN TR 500 MG CAPLET PO SCH (09:42)
--- NOTE | 2023-01-03 10:03 | P.CRDCN ---
History of Present Illness History of present illness: HISTORY OF PRESENT ILLNESS: This is a 77-year-old male with a past medical history significant for Hypertension, DVT and PE, on anticoagulation at home with Eliquis. Patient does not follow with a enterprise resource planning consultant. We have been asked to see the patient in consultation for CHF. Patient examined at the bedside. Patient presented to the hospital for chief complaint of left leg pain and swelling. Vascular surgery was consulted and evaluated the patient who feels that the patient's DVT and PE are both chronic. His Eliquis was placed on hold and he was started on IV h eparin. The patient denies chest pain or pressure. Denies SOB. Vital signs are stable. * EKG reveals sinus bradycardia with right bundle branch block. * Chest CT: Mildly limited study due to artifact. If he scattered tiny pulmonary emboli and distal subsegmental branches are suspected. No large pul monary embolism within the main pulmonary artery or right and left pulmonary artery or proximal segmental branches. Suggestive of mild CHF. * Venous Doppler: DVT of left lower extremity * Laboratory data: WBC 5.58. Hemoglobin 11.6. Platelet count 270. Sodium 139. Potassium 3.6. BUN 14. Creatinine 1.09. * Current home cardiac medications include aspirin 81 mg daily, Triamterene/hydrochlorothiazide 75-50mg daily, and Eliquis 5mg BID REVIEW OF SYSTEMS: At the time of my exam: CONSTITUTIONAL: Denies fever or chills. HEENT: Denies blurred vision, vision changes, or eye pain. Denies hemoptysis CARDIOVASCULAR: Denies chest pain. Denies orthopnea. Denies PND. Denies palpitations RESPIRATORY: Denies shortness of breath. GASTROINTESTINAL: Denies abdominal pain. Denies nausea or vomiting. HEMATOLOGIC: Denies bleeding disorders. GENITOURINARY: Denies any blood in urine. SKIN: Denies pruitis. Denies rash. PHYSICAL EXAM: VITAL SIGNS: Reviewed. GENERAL: Well-developed in no acute distress. HEENT: Head is normocephalic. Pupils are equal, round. Sclerae anicteric. Mucous membranes of the mouth are moist. Neck supple. No JVD or thyromegaly LUNGS: Respirations even and unlabored. Lungs essentially clear to auscultation bilaterally. HEART: Regular rate and rhythm. S1 and S2 heard. ABDOMEN: Soft. Nondistended. Nontender. EXTREMITIES: Normal range of motion. No clubbing or cyanosis. Peripheral pulses intact. Left lower extremity edema. NEUROLOGIC: Awake and alert. Oriented x 3. ASSESSMENT: Left leg swelling, no evidence of CHF, BNP 359 Chronic PE/DVT, on Eliquis Hypertension PLAN: Obtain 2D echo to assess cardiac structure and function Recommend transitioning back to Eliquis Stable from a cardiac standpoint Further recommendations pending patient course Nurse practitioner note has been reviewed by physician. Signing provider agrees with the documented findings, assessment, and plan of care. Past Medical History Past Medical History: Diabetes Mellitus, Hypertension History of Any Multi-Drug Resistant Organisms: None Reported Past Surgical History: Tonsillectomy Past Psychological History: No Psychological Hx Reported Smoking Status: Former smoker Past Alcohol Use History: None Reported Past Drug Use History: None Reported Medications and Allergies Home Medications Medication Instructions Recorded Confirmed Type Apixaban [Eliquis] 5 mg PO BID 01/01/23 01/01/23 History Aspirin EC [Ecotrin Low Dose] 81 mg PO DAILY 01/01/23 01/01/23 History Ferrous Sulfate [Slow Fe] 142 mg PO DAILY 01/01/23 01/01/23 History Fluticasone Nasal [place] [Flonase 1 spray EA NOSTRIL DAILY 01/01/23 01/01/23 History Nasal [place]] Fluticasone Propion/Salmeterol 1 puff INHALATION RT-BID 01/01/23 01/01/23 Histo ry [Advair 250-50 Diskus] Ipratropium/Albuter 20-100Mcg 1 puff INHALATION RT-QID 01/01/23 01/01/23 History [Combivent Respimat 20-100Mcg Inhaler] Niacin 500 mg PO DAILY 01/01/23 01/01/23 History [place]-3 Fatty Acids [[place]-3] 1,000 mg PO DAILY 01/01/23 01/01/23 History Pantoprazole [Protonix] 40 mg PO DAILY 01/01/23 01/01/23 History Potassium Gluconate 99 mg PO DAILY 01/01/23 01/01/23 History Sildenafil Citrate 100 mg PO DAILY PRN 01/01/23 01/01/23 History Thyroid,Pork [[place] Thyroid] 120 mg PO DAILY 01/01/23 01/01/23 History Triamterene/Hydrochlorothiazid 1 tab PO DAILY 01/01/23 01/01/23 History [Triamterene-Hctz 75-50 mg Tab] Zinc Gluconate [Zinc] 50 mg PO DAILY 01/01/23 01/01/23 History oxyBUTYnin chloride [oxyBUTYnin 5 mg PO BID 01/01/23 01/01/23 History chloride ER] Allergies Allergy/AdvReac Type Severity Reaction Status Date / Time No Known Allergies Allergy Verified 01/01/23 16:05 Physical Exam Vitals: Vital Signs Temp Pulse Pulse Resp BP BP Pulse Ox 01/02/23 08:37 70 01/02/23 08:24 66 01/02/23 07:22 98.4 F 62 18 150/78 95 01/02/23 05:39 01/02/23 01:31 97.8 F 64 19 159/75 94 L 01/02/23 00:27 01/01/23 23:09 01/01/23 22:15 01/01/23 21:17 55 L 01/01/23 21:08 52 L 01/01/23 21:02 98.0 F 54 L 16 168/79 96 01/01/23 20:00 54 L 17 145/68 96 01/01/23 19:00 52 L 15 150/77 96 01/01/23 18:38 98.2 F 50 L 18 150/77 94 L 01/01/23 17:12 98.6 F 54 L 18 143/64 01/01/23 15:47 99.4 F 01/01/23 15:04 98.7 F 60 18 141/60 96 FiO2 01/02/23 08:37 01/02/23 08:24 01/02/23 07:22 01/02/23 05:39 21 01/02/23 01:31 01/02/23 00:27 21 01/01/23 23:09 21 01/01/23 22:15 21 01/01/23 21:17 01/01/23 21:08 01/01/23 21:02 01/01/23 20:00 01/01/23 19:00 01/01/23 18:38 01/01/23 17:12 01/01/23 15:47 01/01/23 15:04 Intake and Output 01/01/23 01/02/23 01/02/23 22:59 06:59 14:59 Intake Total 113.35 136.65 Balance 113.35 136.65 Intake: Intake, IV Titration 113.35 136.65 Amount Heparin Sod,Pork in 0.45% 113.35 136.65 NaCl 25,000 unit In 0.45 % NaCl 1 250ml.bag @ 18 UNITS/KG/HR 20.003 mls/hr IV .[id number] [facility] Rx#: [id number] Other: Voiding Method Toilet # Voids 2 Weight 111.13 kg Results 01/02/23 04:03 01/01/23 12:35 Cardiac Enzymes 01/01/23 Range/Units 12:35 AST 18 (17-59) U/L Coagulation 01/01/23 01/01/23 01/01/23 Range/Units 18:47 20:30 22:20 PT 12.1 H (9.0-12.0) sec APTT 156.7 H* 100.9 H* (22.0-30.0) sec 01/02/23 Range/Units 04:03 PT (9.0-12.0) sec APTT 66.5 H (22.0-30.0) sec CBC 01/02/23 Range/Units 04:03 WBC 5.58 (4.50-10.00) X 10*3/uL RBC 4.96 (4.40-5.60) X 10*6/uL Hgb 11.6 L (12.0-15.0) d/dL Hct 40.0 (39.6-50.0) % Plt Count 270 (140-440) X 10*3/uL Comprehensive Metabolic Panel 01/01/23 Range/Units 12:35 Sodium 139 (137-145) mmol/L Potassium 3.6 (3.5-5.1) mmol/L Chloride 105 (98-107) mmol/L Carbon Dioxide 29 (22-30) mmol/L BUN 14 (9-20) mg/dL Creatinine 1.09 (0.66-1.25) mg/dL Glucose 88 (74-99) mg/dL Calcium 8.4 (8.4-10.2) mg/dL AST 18 (17-59) U/L ALT 13 (4-49) U/L Alkaline Phosphatase 58 (38-126) U/L Total Protein 6.5 (6.3-8.2) g/dL Albumin 3.3 L (3.5-5.0) g/dL Current Medications Generic Name Dose Route Start Last Admin Trade Name Freq PRN Reason Stop Dose Admin Acetaminophen 650 mg 01/01/23 16:32 Acetaminophen Tab 325 Mg Tab PO Q6HR PRN Mild Pain or Fever > 100.5 Hydrocodone Bitart/Acetaminophen 1 each 01/01/23 16:32 Hydrocodone/Apap 5-325mg 1 Each Tab PO Q4HR PRN Moderate Pain (Scale 4 to 6) Albuterol/Ipratropium 3 ml 01/01/23 20:00 01/02/23 08:21 Ipratropium-Albuterol 3 Ml Neb INHALATION 3 ml RT-QID JOSE Administration Budesonide/Formoterol Fumarate 2 puff 01/01/23 20:00 01/02/23 08:21 Symbicort 80-4.5 Mcg Inhaler INHALATION 2 puff RT-BID JOSE Administration Ferrous Sulfate 325 mg 01/02/23 09:00 01/02/23 09:56 Ferrous Sulfate 325 Mg Tab PO 325 mg DAILY JOSE Administration Fluticasone Propionate 1 spray 01/02/23 09:00 01/02/23 09:56 Fluticasone 50mcg/[place] Nasal 16gm EA NOSTRIL 1 spray DAILY JOSE Administration Heparin Sodium (Porcine) 0 unit 01/01/23 16:31 Heparin Sodium 1,000 Un/Ml (10ml Vl) IV PER PROTOCOL PRN Low PTT Protocol Heparin Sodium/Sodium Chloride 250 mls @ 20.003 mls/hr 01/01/23 16:45 01/02/23 07:33 25,000 unit/ Sodium Chloride IV 15 units/kg/hr .[id number] JOSE 16.67 mls/hr Administration Protocol 18 UNITS/KG/HR Morphine Sulfate 4 mg 01/01/23 16:32 Morphine Sulfate 4 Mg/Ml Syringe IV Q4HR PRN Severe Pain (Scale 7 to 10) Naloxone HCl 0.2 mg 01/01/23 16:32 Naloxone 0.4 Mg/Ml 1 Ml Vial IV Q2M PRN Opioid Reversal Niacin 500 mg 01/02/23 09:00 01/02/23 09:56 Niacin Tr 500 Mg Caplet PO 500 mg DAILY JOSE Administration Ondansetron HCl 4 mg 01/01/23 16:32 Ondansetron 4 Mg/2 Ml Vial IVP Q8HR PRN Nausea And Vomiting Oxybutynin Chloride 5 mg 01/01/23 21:00 01/02/23 09:56 Oxybutynin Xl 5 Mg Tab.Er.24 PO 5 mg BID JOSE Administration Pantoprazole Sodium 40 mg 01/02/23 07:30 01/02/23 07:36 Pantoprazole 40 Mg Tablet PO 40 mg AC-BRKFST JOSE Administration Potassium Chloride 10 meq 01/02/23 09:00 01/02/23 09:56 Potassium Chloride Er 10 Meq Tab.Er.Prt PO 10 meq DAILY JOSE Administration Thyroid 120 mg 01/02/23 09:00 01/02/23 09:56 Thyroid, Pork 30 Mg Tab PO 120 mg DAILY JOSE Administration Triamterene/Hydrochlorothiazide 1 each 01/02/23 09:00 01/02/23 09:56 Triamterene-Hctz 75-50mg 1 Each Tab PO 1 each DAILY JOSE Administration Zinc Sulfate 220 mg 01/02/23 09:00 01/02/23 09:56 Zinc Sulfate 220 Mg Cap PO 220 mg DAILY JOSE Administration Intake and Output 01/01/23 01/02/23 01/02/23 22:59 06:59 14:59 Intake Total 113.35 136.65 Balance 113.35 136.65 Intake: Intake, IV Titration 113.35 136.65 Amount Heparin Sod,Pork in 0.45% 113.35 136.65 NaCl 25,000 unit In 0.45 % NaCl 1 250ml.bag @ 18 UNITS/KG/HR 20.003 mls/hr IV .[id number] [facility] Rx#: [id number] Other: Voiding Method Toilet # Voids 2 Weight 111.13 kg 01/02/23 04:03 01/01/23 12:35
[2023-01-03] MEDS ORDERED: APIXABAN 5 MG TAB PO SCH (10:45)
--- NOTE | 2023-01-03 11:39 | P.DS ---
Providers Date of admission: 01/01/23 17:36 Expected date of discharge: 01/03/23 Attending physician: Audi Mulligan Consults: 01/02/23 09:15 Consult Physician Urgent Consulting Provider: Sukhi Fay Consult Reason/Comments: chf, volume overload, leg swelling Do you want consulting provider notified?: Yes 01/02/23 10:19 Consult Physician Urgent Consulting Provider: Romeo Abel Consult Reason/Comments: PE, left lower extremity DVT, currently on Eliquis Do you want consulting provider notified?: Yes Primary care physician: Physician Nonstaff Hospital Course: Discharge diagnoses; chronic left lower extremity DVT Chronic PE Acute CHF ruled out Hypertension Hypothyroidism Hospital course; patient is a 77-year-old gentleman with past medical significant for DVT, PE who presented to the ER because of left leg pain and swelling. Patient started noticing increased swelling of left lower extremity, was also associated pain in that area. Patient has previous history of DVT in right lower extremity leading to PE for which he takes Eliquis. Patient denies any orthopnea or PND. There was no complain of any fever or chills. Denies any chest pain or shortness of breath. Because of his left lower extremity swelling, patient came to the ER Initial lab work in the ER showed WBC 5.6, hemoglobin 13.3, platelet count 283, sodium 139, potassium 3.6, BUN 14, creatinine 1.09 Chest CTA done showed few scattered tiny pulmonary emboliin distal subsegmental branches. No large pulmonary emboli suspected Ultrasound of lower extremities showed deep vein thrombosis in the left lower extremity, nonoccluding Patient was admitted to medicine service 01/03. Patient seen and examined. Patient was seen by vascular surgery and by hematology oncology, they think that lower extremity duplex as well as CT angiogram findings are all chronic. At this time they recommended starting patient back to his home dose of Eliquis. Cardiology recommended outpatient follow-up. Being discharged in stable condition PHYSICAL EXAMINATION: GENERAL: The patient is alert and oriented x3, not in any acute distress. Well developed, well nourished. HEENT: Pupils are round and equally reacting to light. EOMI. No scleral icterus. No conjunctival pallor. Normocephalic, atraumatic. No pharyngeal erythema. No thyromegaly. CARDIOVASCULAR: S1 and S2 present. No murmurs, rubs, or gallops. PULMONARY: Chest is clear to auscultation, no wheezing or crackles. ABDOMEN: Soft, nontender, nondistended, normoactive bowel sounds. No palpable organomegaly. MUSCULOSKELETAL: No joint swelling or deformity. EXTREMITIES: Left lower extremity swollen, chronic NEUROLOGICAL: Gross neurological examination did not reveal any focal deficits. SKIN: No rashes. Plan - Discharge Summary Discharge Rx Participant: Yes New Discharge Prescriptions: Continue Niacin 500 mg PO DAILY Triamterene/Hydrochlorothiazid [Triamterene-Hctz 75-50 mg Tab] 1 tab PO DAILY Pantoprazole [Protonix] 40 mg PO DAILY Ipratropium/Albuter 20-100Mcg [Combivent Respimat 20-100Mcg Inhaler] 1 puff INHALATION RT-QID Apixaban [Eliquis] 5 mg PO BID Zinc Gluconate [Zinc] 50 mg PO DAILY Sildenafil Citrate 100 mg PO DAILY PRN PRN Reason: E.D. Potassium Gluconate 99 mg PO DAILY [place]-3 Fatty Acids [[place]-3] 1,000 mg PO DAILY Fluticasone Propion/Salmeterol [Advair 250-50 Diskus] 1 puff INHALATION RT- BID Fluticasone Nasal [place] [Flonase Nasal [place]] 1 spray EA NOSTRIL DAILY Aspirin EC [Ecotrin Low Dose] 81 mg PO DAILY oxyBUTYnin chloride [oxyBUTYnin chloride ER] 5 mg PO BID Thyroid,Pork [[place] Thyroid] 120 mg PO DAILY Ferrous Sulfate [Slow Fe] 142 mg PO DAILY Discharge Medication List Apixaban [Eliquis] 5 mg PO BID 01/01/23 [History] Aspirin EC [Ecotrin Low Dose] 81 mg PO DAILY 01/01/23 [History] Ferrous Sulfate [Slow Fe] 142 mg PO DAILY 01/01/23 [History] Fluticasone Nasal [place] [Flonase Nasal [place]] 1 spray EA NOSTRIL DAILY 01/01/23 [History] Fluticasone Propion/Salmeterol [Advair 250-50 Diskus] 1 puff INHALATION RT-BID 01/01/23 [History] Ipratropium/Albuter 20-100Mcg [Combivent Respimat 20-100Mcg Inhaler] 1 puff INHALATION RT-QID 01/01/23 [History] Niacin 500 mg PO DAILY 01/01/23 [History] [place]-3 Fatty Acids [[place]-3] 1,000 mg PO DAILY 01/01/23 [History] Pantoprazole [Protonix] 40 mg PO DAILY 01/01/23 [History] Potassium Gluconate 99 mg PO DAILY 01/01/23 [History] Sildenafil Citrate 100 mg PO DAILY PRN 01/01/23 [History] Thyroid,Pork [[place] Thyroid] 120 mg PO DAILY 01/01/23 [History] Triamterene/Hydrochlorothiazid [Triamterene-Hctz 75-50 mg Tab] 1 tab PO DAILY 01/01/23 [History] Zinc Gluconate [Zinc] 50 mg PO DAILY 01/01/23 [History] oxyBUTYnin chloride [oxyBUTYnin chloride ER] 5 mg PO BID 01/01/23 [History] Follow up Appointment(s)/Referral(s): Nonstaff,Physician [Primary Care Provider] - 1-2 days Jadiel Shelby MD [STAFF PHYSICIAN] - 1 Week Discharge Disposition: HOME SELF-CARE
[2023-01-03 16:09] VITALS: BP 138/59; RESP 19; TEMP 98.1
[2023-01-03 16:28] VITALS: PULSE 64
--- NOTE | 2023-01-04 11:56 | CA ---
Transthoracic Echo Report Name: Avery Bartholomew Age: 77 Gender: M : 1945 Exam Date: 01/03/2023 14:38 Exam Location: [place] Echo Ht (in): 74 Wt (lb): 245 Ordering Physician: Richelle Mcmahon Attending/Referring Phys: [id number], Lisandro [employer] Manager Margaret Turner [facility] Procedure CPT: Indications: LV function Cardiac Hx: Technical Quality: Technically difficult study Contrast 1: [place] Total Dose (mL): 5 Contrast 2: Total Dose (mL): MEASUREMENTS (Male / Female) Normal Values 2D ECHO LV Diastolic Diameter PLAX 5.1 cm 4.2 - 5.9 / 3.9 - 5.3 cm LV Systolic Diameter PLAX 3.1 cm IVS Diastolic Thickness 1.1 cm 0.6 - 1.0 / 0.6 - 0.9 cm LVPW Diastolic Thickness 1.3 cm 0.6 - 1.0 / 0.6 - 0.9 cm LV Relative Wall Thickness 0.5 LVOT Diameter 2.0 cm Aortic Root Diameter 4.3 cm Ascending Aorta Diameter 3.5 cm M-MODE Aortic Root Diameter MM 4.4 cm AV Cusp Separation MM 2.2 cm DOPPLER AV Peak Velocity 172.1 cm/s AV Peak Gradient 11.8 mmHg AV Mean Velocity 121.5 cm/s AV Mean Gradient 6.7 mmHg AV Velocity Time Integral 36.2 cm LVOT Peak Velocity 145.3 cm/s LVOT Peak Gradient 8.4 mmHg LVOT Velocity Time Integral 32.0 cm LVOT Stroke Volume 98.3 cm??? LVOT Stroke Volume Index 41.5 ml/m??? LVOT Cardiac Index 2381.5 cm???/min???m??? AV Area Cont Eq vti 2.7 cm??? AV Area Cont Eq pk 2.6 cm??? Mitral E Point Velocity 106.4 cm/s Mitral A Point Velocity 96.4 cm/s Mitral E to A Ratio 1.1 MV Deceleration Time 281.7 ms LV E' Lateral Velocity 8.4 cm/s Mitral E to LV E' Lateral Ratio 12.6 LV E' Septal Velocity 6.8 cm/s Mitral E to LV E' Septal Ratio 15.6 TR Peak Velocity 287.7 cm/s TR Peak Gradient 33.1 mmHg Right Atrial Pressure 8.0 mmHg Pulmonary Artery Systolic Pressu 41.1 mmHg Right Ventricular Systolic Press 41.1 mmHg FINDINGS Left Ventricle Mildly increased left ventricular wall thickness. Left ventricular cavity size at the upper limits of normal. No obvious regional wall motion abnormalities. Left ventricular ejection fraction is estimated at 55-60%. Right Ventricle Right ventricle not well visualized. Moderate right ventricular dilatation. Moderate pulmonary hypertension. Right Atrium Right atrium not well visualized. Left Atrium Mild left atrial dilatation. Mitral Valve Structurally normal mitral valve. Trace mitral regurgitation. Aortic Valve Trileaflet aortic valve. Trace aortic regurgitation. Mild thickening of the aortic valve cusps. Tricuspid Valve Structurally normal tricuspid valve. Trace tricuspid regurgitation. Pulmonic Valve Structurally normal pulmonic valve. Mild pulmonic regurgitation. Pericardium No pericardial effusion. Aorta Moderate aortic dilatation at the level of the sinuses of valsalva (root). Mildly dilated proximal ascending aorta (tube). CONCLUSIONS Normal LV systolic function Dilated right ventricle Dilated aortic root Previewed by: Dr. Mich Avina MD (Electronically Signed) Final Date: 04 January 2023 11:55
== END 2023-01-03 17:49 | disposition home or self-care (01) ==
LOC: EC 09:48 → 4SSUR 17:36 → INTOOBSV 17:36 → 4SSUR 19:39 → UNDODISIN 01-03 17:49
PROVIDERS: ADMIT Hospitalist; ATTEND Hospitalist
DX: I82.512 Chronic embolism and thrombosis of left femoral vein (principal); I82.532 Chronic embolism and thrombosis of left popliteal vein; I27.82 Chronic pulmonary embolism; I11.0 Hypertensive heart disease with heart failure; E11.9 Type 2 diabetes mellitus without complications; I50.9 Heart failure, unspecified; E03.9 Hypothyroidism, unspecified; I27.20 Pulmonary hypertension, unspecified; H91.90 Unspecified hearing loss, unspecified ear; I08.3 Combined rheumatic disorders of mitral, aortic and tricuspid valves; R00.1 Bradycardia, unspecified; I37.1 Nonrheumatic pulmonary valve insufficiency; I45.10 Unspecified right bundle-branch block; Z79.01 Long term (current) use of anticoagulants; Z79.82 Long term (current) use of aspirin; Z79.899 Other long term (current) drug therapy; Z87.891 Personal history of nicotine dependence
CPT/HCPCS: 96366 ×4; 96365 ×2; 99285; 36415; 94660 ×3; 94640 ×6; 93005; 83880; 80053; 83605; 84484; 85025 ×2; 85610; 85730 ×3; 93971; 71275; G0378 ×3; C8929; J1644 ×4; Q9950; Q9967; 93306